=== PATIENT | male | born 1990 | race Caucasian/White ===

== ENCOUNTER 2016-08-06 20:05 | Emergency (ER) | payer OTHER ==
[2016-08-06 20:11] VITALS: RESP 16; O2SAT 96
[2016-08-06] MEDS ORDERED: METHOCARBAMOL 750 MG TAB PO ONE (21:57)
[2016-08-06] MEDS ORDERED: IBUPROFEN 600 MG TAB PO ONE (21:57)
[2016-08-06] MEDS ORDERED: KETOROLAC 15 MG/1 ML SDV IM ONE (21:59)
--- NOTE | 2016-08-06 22:01 | EDPHY ---
H & P Stated Complaint: back pain that radiates into right leg Source: Patient Exam Limitations: No limitations - Personal History Current Tetanus/Diphtheria Vaccine: No Current Tetanus Diphtheria and Acellular Pertussis (TDAP): No - Medical/Surgical History Hx Asthma: Yes Hx Chronic Respiratory Disease: No Hx Diabetes: No Hx Cardiac Disease: No Hx Renal Disease: No Hx Cirrhosis: No Hx Alcoholism: No Hx HIV/AIDS: No Hx Splenectomy or Spleen Trauma: No Other PMH: right hand surgery - Social History Smoking Status: Never smoked Time Seen by Provider: 08/06/16 20:41 HPI/ROS: CHIEF COMPLAINT: back pain HISTORY OF PRESENT ILLNESS: 26-year-old male presents emergency department complaining of low back pain. Patient reports he was at work tonight bending over lowering a heavy box when he felt pain in his low back radiating down his right leg. This is sharp in nature, continuous. Patient reports over the last month he has had right-sided sciatic pain with intermittent pain down his right leg, no previous trauma. Patient denies saddle anesthesias, no loss of control of his bowel or bladder, no fevers. He denies previous pain to his back prior to this. REVIEW OF SYSTEMS: A comprehensive 10 point review of systems is otherwise negative aside from elements mentioned in the history of present illness. (Kanchan Guardado) - Physical Exam Exam: Physical Exam Gen: Alert and Oriented, NAD HEENT: PERRL, moist mucous membranes NECK: no meningismus CV: regular rate and regular rhythm PULM: CTAB, no wheezes ABDOMEN: soft, non tender to palpation, BS present BACK: No midline tenderness to palpation, right-sided SI joint tenderness to palpation NEURO: Neurologically grossly intact, 2/4 deep tendon reflexes patellar and Achilles, 5/5 strength bilateral lower extremities, negative straight leg raise EXTREMITIES: normal appearing SKIN: no rash or break in skin on exposed skin PSYCH: answers questions appropriately. (Kanchan Guardado) Constitutional: Initial Vital Signs Temperature (C) 36.9 C 08/06/16 20:10 Heart Rate 99 08/06/16 20:10 Respiratory Rate 16 08/06/16 20:10 Blood Pressure 125/75 H 08/06/16 20:10 O2 Sat (%) 96 08/06/16 20:10 O2 Delivery Mode Room Air Allergies/Adverse Reactions: No Known Allergies Allergy (Unverified 08/06/16 20:12) Home Medications: Medication Instructions Recorded Methocarbamol [Robaxin-750] 750 - 1,500 mg PO QID PRN #20 08/06/16 tablet Medical Decision Making ED Course/Re-evaluation: I did not see this patient while he was in the emergency department. However his care was discussed with the nurse practitioner while the patient was in the department. I agree with treatment plan and management (Eugenio Peña) Differential Diagnosis: The differential diagnosis for the patient's back pain included but was not limited to musculo-skeletal pain, epidural abscess, herniated disk, spinal fracture, cauda equina and intra-abdominal causes including urinary system. ( Kanchan Guardado) - Data Points Medications Given: Discontinued Medications Ketorolac Tromethamine (Toradol) 15 mg IM EDNOW ONE Stop: 08/06/16 22:00 Last Admin: 08/06/16 22:14 Dose: 15 mg Methocarbamol (Robaxin) 750 mg PO EDNOW ONE Stop: 08/06/16 21:58 Last Admin: 08/06/16 22:14 Dose: 750 mg Departure - Departure Disposition: Home, Routine, Self-Care Clinical Impression: Low back pain Qualifiers: Chronicity: acute Back pain laterality: right Sciatica presence: with sciatica Sciatica laterality: sciatica of right side Qualified Code(s): M54.41 - Lumbago with sciatica, right side Condition: Good Instructions: Sciatica (ED), Back Pain (ED), Lower Back Exercises (ED) Additional Instructions: Take 600 mg of ibuprofen 3 times per day with food, takes methocarbamol every 8 hours as needed for muscle spasms. Ice or heat whichever feels better, gentle range of motion exercises, core strengthening exercises daily. Return to the emergency department for any loss of control of your bowel or bladder, numbness to your groin, fevers. Follow up with the primary care doctor provided to establish care. Formal physical therapy will be helpful. Referrals: Yahaira Emery MD [Medical Doctor] - As per Instructions (Primary care doctor on-call) Prescriptions: Methocarbamol [Robaxin-750] 750 - 1,500 mg PO QID PRN #20 tablet PRN Reason: Spasms
[2016-08-06 22:22] VITALS: BP 117/74; PULSE 66; TEMP 98.1
== END 2016-08-06 22:22 | disposition home or self-care (01) ==
DX: M54.41 Lumbago with sciatica, right side (principal); J45.909 Unspecified asthma, uncomplicated
CPT/HCPCS: J1885